=== PATIENT | male | born 1955 | race Caucasian/White ===

== ENCOUNTER → 2024-01-20 07:04 | Outpatient (REF) | payer MEDICARE, OTHER, SELFPAY | LOC: RAD 07:04 | PROVIDERS: ATTENDING PHYSICIAN Family Medicine | DX: Z87.891 Personal history of nicotine dependence (principal) | CPT/HCPCS: 76770 ==

== ENCOUNTER → 2024-03-03 08:59 | Outpatient (REF) | payer MEDICARE, OTHER, SELFPAY | LOC: RAD 08:59 | PROVIDERS: ATTENDING PHYSICIAN Family Medicine | DX: F17.210 Nicotine dependence, cigarettes, uncomplicated (principal) | CPT/HCPCS: 71271 ==

== ENCOUNTER → 2024-04-06 09:58 | Outpatient (REF) | payer MEDICARE, OTHER, SELFPAY | LOC: RAD 09:58 | PROVIDERS: ATTENDING PHYSICIAN Family Medicine | DX: I25.10 Atherosclerotic heart disease of native coronary artery without angina pectoris (principal); I25.84 Coronary atherosclerosis due to calcified coronary lesion | CPT/HCPCS: 75571 ==

== ENCOUNTER → 2025-02-17 09:29 | Outpatient (REF) | payer MEDICARE, OTHER, SELFPAY ==
[2025-02-17 11:01] LABS: Glycohemoglobin (HgbA1c) 5.3 % (4.0-5.6)
[2025-02-17 11:35] LABS: ALT (SGPT) 25 U/L (0-50); AST (SGOT) 19 U/L (17-59); HDL Cholesterol 36 mg/dl; LDL Cholesterol, Calculated 75 mg/dl; Very Low Density Lipoprotein 15 mg/dl (0-30)
[2025-02-17 13:04] LABS: PSA, Total - Diagnostic 0.56 ng/ml (0.0-4.0)
== END ==
LOC: REG 09:29
PROVIDERS: ATTENDING PHYSICIAN Specialist; FAMILY PHYSICIAN Family Medicine
DX: E78.2 Mixed hyperlipidemia (principal); R73.01 Impaired fasting glucose; C61 Malignant neoplasm of prostate
CPT/HCPCS: 36415; 80061; 83036; 84153; 84450; 84460